=== PATIENT | female | born 1955 | race Two or more races ===

== ENCOUNTER → 2020-12-13 09:56 | Outpatient (REF) | payer OTHER, SELFPAY ==
--- NOTE | 2020-12-13 10:30 | CA_ITS ---
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 Normal LV systolic function with impaired relaxation filling pattern 2. Normal cardiac valvular Doppler 3. Moderate mitral annular calcification and mild fibrocalcific aortic valve changes noted 4. Normal RV systolic pressure 5. No pericardial effusion Findings Left Ventricle Normal left ventricular size, thickness, and systolic function. The visually estimated ejection fraction is between 55-60%. Spectral Doppler is indicative of an impaired relaxation filling pattern. E/E prime ratio is between 8 and 15 consistent with indeterminate filling pressures. Right Ventricle Normal right ventricular cavity size and systolic function. Atria The left atrium is likely dilated. There is no evidence of interatrial shunt. The right atrium is normal in size. Aortic Valve There is mild calcification of the aortic valve. There is mild thickening of the aortic valve. There is no aortic valve stenosis. There is no aortic valve regurgitation. Mitral Valve There is mild anterior and posterior mitral leaflet thickening. There is moderate mitral annular calcification. There is trace mitral valve regurgitation. There is no mitral valve stenosis. Pulmonic Valve The pulmonic valve was not well visualized. There is trace pulmonic valve regurgitation. Tricuspid Valve Normal tricuspid valve structure. There is trace tricuspid valve regurgitation. The right ventricular systolic pressure is normal. The right ventricular systolic pressure is 27 mmHg. Normal right atrial pressure. There is no evidence of pulmonary hypertension. Great Vessels All visible segments of the aorta are normal in size. The pulmonary artery was not well visualized. Moderate plaque is seen in the sino tubular ridge. Venous The inferior vena cava is normal in size and collapses greater than 50% with inspiration. Pericardium/Pleural There is no evidence of pericardial effusion. Prior Study Comparison No significant change compared to prior study dated: 10/27/2019. Measurements 2D Linear Measurements IVSd: 0.95 0.6-0.9/0.6-1.0 cm LVIDd: 4.59 3.9-5.3/4.2-5.9 cm LVIDd Index: 2.43 2.4-3.2/2.2-3.1 cm/m2 LVIDs: 3.02 2.0-3.6 cm LVPWd: 0.98 0.7-1.1 cm Ao Root: 2.90 2.1-3.5 cm LA Diam: 4.00 2.7-3.8/3.0-4.0 cm LAIDs Index: 2.12 1.5-2.3 cm/m2 LV Mass: 187.68 67-162/88-224 g LV Mass Index: 99.30 43-95/49-115 g/m2 LVOT Diam: 2.00 3.0+(-)1.3 cm 2D Systolic Function EF 4C: 53.10 >55% EF 2C: 64.90 >55% EF BiP: 59.10 >55% Mitral Valve MV Pk E: 0.62 MV PK A: 1.11 MV Decel Time: 197.00 E/A: 0.60 E'Lateral: 8.49 E'Medial: 5.87 E/E' Med: 10.50 E/E' Lat: 7.30 PHT: 58.00 MVA PHT: 3.79 Decel Dickenson: 3.14 Aortic Valve AoV Pk Rubio: 1.69 AoV Mn Rubio: 1.14 AoV VTI: 0.39 AoV Pk Grad: 11.00 Aov Mn Grad: 6.00 FAWN Cont.VTI: 1.71 LVOT LVOT Pk Rubio: 1.02 LVOT Mn Rubio: 0.67 LVOT VTI: 0.21 LVOT Pk Grad: 4.00 LVOT Mn Grad: 2.00 LVOT Diam: 2.00 LVOT Area: 3.14 Diastolic Function MV Pk E: 0.62 MV Pk A: 1.11 E/A: 0.60 E'Medial: 5.87 E/E' Med: 10.50 E' Laterial: 8.49 E/E' Lat: 7.30 Tricuspid Valve TR Pk Rubio: 2.46 TR Pk Grad: 24.00 RA Press: 3.00 RVSP: 27.00 Great Vessels Aorta Ao Root-2D: 2.90 2.0-3.7 cm Ao Asc: 3.00 2.1-3.4 cm Ao Arch: 2.70 Updated in Other Vendor System with Status of Final Dewey Lyon MD electronically signed on 12/14/2020 2:37:35 PM with status of Final
== END ==
LOC: HO.CARD 09:56
PROVIDERS: Visit Provider Internal Medicine
DX: R01.1 Cardiac murmur, unspecified (principal); I70.90 Unspecified atherosclerosis
CPT/HCPCS: 93306

== ENCOUNTER → 2020-12-20 14:15 | Outpatient (BNVA) | payer OTHER, SELFPAY | PROVIDERS: PCP Internal Medicine; Visit Provider Internal Medicine | DX: I70.90 Unspecified atherosclerosis (principal); I05.9 Rheumatic mitral valve disease, unspecified; I35.9 Nonrheumatic aortic valve disorder, unspecified | CPT/HCPCS: 93005; 99212 ==

== ENCOUNTER 2021-01-02 08:43 | Outpatient (REF) | payer OTHER, SELFPAY ==
[2021-01-02 16:16] LABS: Free T4 (Free Thyroxine) 1.08 ng/dL (0.71-1.85); Thyroid Stimulating Hormone 0.94 uIU/mL (0.32-4.0)
[2021-01-03 06:07] LABS: Triiodothyronine T3 Total 95 ng/dL (76-181)
== END 2021-01-02 08:44 | disposition home or self-care (01) ==
LOC: HO.LAB 08:43
PROVIDERS: PCP Internal Medicine; Visit Provider Internal Medicine
DX: E05.00 Thyrotoxicosis with diffuse goiter without thyrotoxic crisis or storm (principal); E04.2 Nontoxic multinodular goiter; E55.9 Vitamin D deficiency, unspecified; Z79.899 Other long term (current) drug therapy
CPT/HCPCS: 36415; 84439; 84443; 84480

== ENCOUNTER → 2021-02-13 13:43 | Outpatient (BNVA) | payer OTHER, SELFPAY | PROVIDERS: PCP Internal Medicine; Visit Provider Internal Medicine ==

== ENCOUNTER 2021-03-19 10:00 | Outpatient (REF) | payer OTHER, SELFPAY ==
[2021-03-19 11:21] LABS: Alanine Aminotransferase 13 U/L (0-31); Albumin Level 3.9 g/dL (3.5-5.0); Alkaline Phosphatase 75 U/L (39-117); Aspartate Amino Transferase 16 U/L (5-31); Bilirubin Direct 0.2 mg/dL (0.0-0.5); Bilirubin Total 0.4 mg/dL (0.0-1.0); Cholesterol 112 mg/dL; HDL Cholesterol 51 mg/dL; LDL Cholesterol Calculated 49 mg/dl; Total Protein 6.8 g/dL (6.5-8.0); Triglycerides 64 mg/dL
== END 2021-03-19 10:01 | disposition home or self-care (01) ==
LOC: HO.LAB 10:00
PROVIDERS: Visit Provider Internal Medicine
DX: I70.90 Unspecified atherosclerosis (principal)
CPT/HCPCS: 36415; 80061; 80076

== ENCOUNTER 2021-08-13 09:19 | Outpatient (REF) | payer OTHER, SELFPAY ==
[2021-08-13 11:07] LABS: Free T4 (Free Thyroxine) 0.99 ng/dL (0.71-1.85); Thyroid Stimulating Hormone 0.94 uIU/mL (0.32-4.0); Vitamin D 25-OH Total 13.3 ng/mL (>30)
[2021-08-15 00:46] LABS: Triiodothyronine T3 Total 113 ng/dL (76-181)
[2021-08-19 17:51] LABS: Thyrotropin Receptor Antibody <1.00 IU/L (<=2.00)
[2021-08-21 15:21] LABS: Thyroid Stimulating Immunoglob <89 % baseline (<140)
== END 2021-08-13 09:20 | disposition home or self-care (01) ==
LOC: HO.10HDL 09:19
PROVIDERS: Visit Provider Internal Medicine
DX: E55.9 Vitamin D deficiency, unspecified (principal); E05.00 Thyrotoxicosis with diffuse goiter without thyrotoxic crisis or storm; E04.2 Nontoxic multinodular goiter
CPT/HCPCS: 36415; 82306; 83520; 84439; 84443; 84445; 84480

== ENCOUNTER → 2021-08-14 10:39 | Outpatient (BNVA) | payer OTHER, SELFPAY | PROVIDERS: Visit Provider Internal Medicine ==

== ENCOUNTER → 2021-12-24 13:31 | Outpatient (BNVA) | payer OTHER, SELFPAY | PROVIDERS: Visit Provider Internal Medicine | DX: I70.90 Unspecified atherosclerosis (principal); I05.9 Rheumatic mitral valve disease, unspecified; I35.9 Nonrheumatic aortic valve disorder, unspecified | CPT/HCPCS: 93005; 99212 ==

== ENCOUNTER 2022-02-12 09:15 | Outpatient (REF) | payer OTHER, SELFPAY ==
--- NOTE | ~2022-02-12 | US_ITS ---
EXAMINATION: US THYROID CLINICAL INFORMATION: Nontoxic multinodular goiter. COMPARISON: Thyroid ultrasound 06/19/2020 and 05/04/2019. TECHNIQUE: Linear transducer grayscale and color Doppler examination with attention to the region of the thyroid. FINDINGS: SIZE: Measurements of the thyroid lobes and nodules are given in sagittal, anteroposterior and transverse dimensions respectively. Right Thyroid Lobe: 4.7 x 1.3 x 1.8 cm, volume 5.8 mL. Previously 4.0 x 1.7 x 1.6 cm, volume 5.6 mL. Parenchyma: The gland echotexture is heterogeneous. Thyroid vascularity is normal. Left Thyroid Lobe: 4.4 x 1.1 x 1.4 cm, volume 3.5 mL. Previously 3.7 x 1.8 x 1.7 cm, volume 6.0 mL. Parenchyma: The gland echotexture is heterogeneous. Thyroid vascularity is normal. Isthmus: 0.8 cm in maximum AP dimension. Previously 0.7 cm. Previously visualized nodules appear as heterogeneous tissue with no discrete nodule visualized. NODES: None. US/US thyroid IMPRESSION: Previously visualized nodules are heterogeneous tissue and not visualized. The thyroid gland is diffusely heterogeneous. ACR TI-RADS RECOMMENDATION REFERENCE: Ultrasound-guided fine-needle aspiration, followup ultrasound, no further follow up. * TR1 (0 point) and TR 2 (2 points): No FNA or follow up * TR3 (3 points): FNA if more than or equal to 2.5 cm in maximum dimension, followup ultrasound in 1, 3 and 5 years if 1.5 to 2.4 cm in maximum dimension. * TR4 (4-6 points): FNA if more than or equal to 1.5 cm in maximum dimension, followup ultrasound in 1, 2, 3 and 5 years if 1 to 1.4 cm in maximum dimension. * TR5 (more than or equal to 7 points): FNA if more than or equal to 1 cm in maximum dimension, followup ultrasound every year for 5 years if 0.5 to 0.9 cm in maximum dimension. * TR3, TR4 or TR5 nodules that are below the size threshold for follow up receive no follow up.
== END 2022-02-12 09:16 | disposition home or self-care (01) ==
LOC: HO.US 09:15
PROVIDERS: Visit Provider Internal Medicine
DX: E05.20 Thyrotoxicosis with toxic multinodular goiter without thyrotoxic crisis or storm (principal); E55.9 Vitamin D deficiency, unspecified
CPT/HCPCS: 76536

== ENCOUNTER 2022-03-18 10:32 | Outpatient (REF) | payer OTHER, SELFPAY ==
[2022-03-18 12:51] LABS: Free T4 (Free Thyroxine) 1.04 ng/dL (0.71-1.85); Thyroid Stimulating Hormone 0.79 uIU/mL (0.32-4.0); Vitamin D 25-OH Total 13.8 ng/mL (>30)
[2022-03-19 23:50] LABS: Triiodothyronine T3 Total 118 ng/dL (76-181)
== END 2022-03-18 10:33 | disposition home or self-care (01) ==
LOC: HO.LAB 10:32
PROVIDERS: Visit Provider Internal Medicine
DX: E05.00 Thyrotoxicosis with diffuse goiter without thyrotoxic crisis or storm (principal); E04.2 Nontoxic multinodular goiter; E55.9 Vitamin D deficiency, unspecified
CPT/HCPCS: 36415; 82306; 84439; 84443; 84480

== ENCOUNTER 2022-10-14 11:03 | Outpatient (REF) | payer OTHER, SELFPAY ==
[2022-10-14 13:19] LABS: Free T4 (Free Thyroxine) 1.08 ng/dL (0.71-1.85); Thyroid Stimulating Hormone 1.19 uIU/mL (0.32-4.0)
== END 2022-10-14 11:04 | disposition home or self-care (01) ==
LOC: HO.LAB 11:03
PROVIDERS: Visit Provider Internal Medicine
DX: E55.9 Vitamin D deficiency, unspecified (principal); E04.2 Nontoxic multinodular goiter; E05.00 Thyrotoxicosis with diffuse goiter without thyrotoxic crisis or storm
CPT/HCPCS: 36415; 82306; 84439; 84443

== ENCOUNTER 2022-11-04 12:48 | Outpatient (REF) | payer OTHER, SELFPAY ==
--- NOTE | ~2022-11-04 | XR_ITS ---
EXAMINATION: XR LUMBOSACRAL SPINE WITH OBLIQUES CLINICAL INFORMATION: Spondylosis COMPARISON: None TECHNIQUE: 8 views of the lumbar spine. FINDINGS: 5 nonrib-bearing lumbar type vertebral bodies. Levoconvex curvature of the spine. The lateral radiograph, the sagittal alignment grossly appears maintained. There is a minimal anterolisthesis of L4 on L5 on the flexion view. Vertebral body heights are maintained. No acute fractures seen. In the lumbar spine, disc spaces are relatively maintained. Multilevel facet degeneration, more prominent at L3-4, L4-5, L5-S1. XR/XR lumbar spine 6V w bending IMPRESSION: Levoconvex curvature of the lumbar spine. Lumbar spondylosis with multilevel facet degeneration.
== END 2022-11-04 12:49 | disposition home or self-care (01) ==
LOC: HO.XRAY 12:48
PROVIDERS: Visit Provider Nurse Practitioner Family
DX: M48.061 Spinal stenosis, lumbar region without neurogenic claudication (principal); M47.816 Spondylosis without myelopathy or radiculopathy, lumbar region; M54.16 Radiculopathy, lumbar region
CPT/HCPCS: 72114; 99202

== ENCOUNTER → 2022-11-05 13:12 | Outpatient (BNVA) | payer OTHER, SELFPAY | PROVIDERS: Visit Provider Internal Medicine | DX: E05.00 Thyrotoxicosis with diffuse goiter without thyrotoxic crisis or storm (principal); E04.2 Nontoxic multinodular goiter; E55.9 Vitamin D deficiency, unspecified; Z79.899 Other long term (current) drug therapy | CPT/HCPCS: 99212 ==

== ENCOUNTER → 2023-02-26 12:20 | Outpatient (BNVA) | payer OTHER, SELFPAY | PROVIDERS: Visit Provider Internal Medicine | DX: I70.90 Unspecified atherosclerosis (principal); I05.9 Rheumatic mitral valve disease, unspecified; I35.9 Nonrheumatic aortic valve disorder, unspecified | CPT/HCPCS: 93005; 99212 ==

== ENCOUNTER 2023-05-13 08:43 | Outpatient (AMB) | payer OTHER, SELFPAY ==
--- NOTE | 2023-05-13 08:43 | MHC.OFFVIS ---
Intake Intake Visit Reasons: F/U Grave's Disease Allergies No Known Allergies [No Known Allergies*] Allergy (Verified 05/13/23 10:19) Medication List - Last Reconciled 05/13/23 by Kaela Maria DO brimonidine 0.2% 1 drp ophthalmic (eye) Q12H cholecalciferol (vitamin D3) 50 mcg PO DAILY 30 days dorzolamide-timolol 22.3-6.8 mg/mL 1 drp ophthalmic (eye) Q12H gabapentin 200 mg PO TID PRN latanoprost 0.005% 1 drp ophthalmic (eye) BEDTIME meloxicam 7.5 mg PO DAILY PRN methocarbamol 1,000 mg PO BID oxycodone-acetaminophen 5-325 mg 1 tab PO Q12H PRN rosuvastatin (Crestor) 20 mg PO DAILY HPI HPI Comments History of Present Illness Details 68 YO F with PMHx Grave's disease who is seen in F/U for the same. She was previously followed by Dr. Maravilla. Review of past records reveals that she was diagnosed with Grave's disease in 2010 with suppressed TSH and TRAB antibodies elevated. She had thyroid uptake and scan completed 06/17/2011 which revealed diffusely increased uptake of 64.1% at 24 hours, consistent with Grave's disease. She was started on Methimazole, and this was slowly tapered to 2.5 mg PO daily, and then stopped in 2012. Approximately 1 year later symptoms recurred and she was again diagnosed with hyperthyroidism. She was placed on Methimazole 7.5 mg PO daily and continued this until late 2016. She was then lost to F/U and has remained off Methimazole. She reestablished care with de in 2019. Labs were repeated and confirmed Hyperthyroidism due to Grave's disease with elevated TSI and TSH 0.05 05/02/19. She also had a CBC checked which revealed low ANC, thus decision was made to hold off on thionamine therapy, and refer her to Dr. Huynh to discuss total thyroidectomy. Labs were then repeated 07/18/19 which showed improvement of TSH to 0.7 with FT4 of 0.96. CBC remained with low ANC. She did not have thyroid uptake and scan given that TSH was now normal. TSH has remained normal since that time. She never attended her appointment with Dr. Huynh despite multiple attempts by their office to contact her. She also had thyroid US which revealed a multinodular thyroid, with multiple subcentimeter nodules bilaterally. There were also multiple normal appearing lymph nodes bilaterally. She had her yearly surveillance US 02/12/2022 which revealed no nodules and solely a heterogenous appearing gland. She reports feeling well currently and denies any symptoms of hyper or hypothyroidism. She remains off Methimazole. She denies any family history of Grave's disease or other thyroid disease. Thyroid US: 02/12/2022 Right Thyroid Lobe: 4.7 x 1.3 x 1.8 cm, volume 5.8 mL. Previously 4.0 x 1.7 x 1.6 cm, volume 5.6 mL. Parenchyma: The gland echotexture is heterogeneous. Thyroid vascularity is normal. Left Thyroid Lobe: 4.4 x 1.1 x 1.4 cm, volume 3.5 mL. Previously 3.7 x 1.8 x 1.7 cm, volume 6.0 mL. Parenchyma: The gland echotexture is heterogeneous. Thyroid vascularity is normal. Isthmus: 0.8 cm in maximum AP dimension. Previously 0.7 cm. Previously visualized nodules appear as heterogeneous tissue with no discrete nodule visualized. NODES: None. Labs: Laboratory Tests 10/14/22 11:12 25-OH Vitamin D To sadiq 20.0 TSH 1.19 Free T4 1.08 PFSH Medical History Aortic valve calcification Atherosclerotic vascular disease Graves disease Mitral annular calcification Multinodular thyroid Vitamin D deficiency Surgical History History of tubal ligation Family History Mother Asthma Father No problems noted. Other Diabetes Social History Alcohol intake: never Patient Tobacco Use Status: Never used Tobacco Assessment & Plan Assessment & Plan (1) Graves disease: Code(s): E05.00 - Thyrotoxicosis with diffuse goiter without thyrotoxic crisis or storm Plan: Patient with Grave's disease who is currently in remission, but does have frequent flares of disease. We discussed that if her Grave's does flare again, it will be difficult to manage because thionamine therapy is contraindicated due to her Neutropenia. We discussed that her neutrophils are low. I had referred her to Hematology for this in the past, but she has refused to go to these appointments. I advised her to discuss this with her PCP so that a referral can be made by her PCP to Hematology. We discussed that I feel a surgical thyroidectomy is a good option for her as this will treat her Grave's disease and also her nodules. She is at high risk for thyroid cancer given the Grave's disease, and she does have multiple subcentimeter nodules within the thyroid. I had referred her to Dr. Huynh to discuss this in the past, but she has consistently missed these appointments. She is refusing to see the surgeon at this time. She states that she understands the risk of recurrent thyrotoxicosis and the challenges in treating this due to the low neutrophils, and also understands the risk of thyroid cancer and that without surgery this may grow and spread. She continues to refuse surgery at this time. I will repeat her TFTs now. If normal she will F/U with her PCP for further management. If abnormal I will call her to discuss. All of her questions were answered. She is in agreement with this plan of care. I spent 20 minutes in reviewing the record, seeing the patient and documenting in the medical record, including 5 minutes on the phone with the Patient. (2) Multinodular thyroid: Code(s): E04.2 - Nontoxic multinodular goiter Plan: Her most recent US revealed no evidence of nodules, just a heterogenous appearing gland. Will repeat again now to confirm. Orders: Orders US thyroid Today E04.2 - Nontoxic multinodular goiter, E05.00 - Thyrotoxicosis with diffuse goiter without thyrotoxic crisis or storm Telehealth Telehealth Location of provider rendering services: practice address Location of patient: address on file Patient Identification confirmed using: Name, : Yes Telehealth method: voice only Patient verbally consented to treatment: Yes Patient verbally consented to billing insurance company: Yes Patient informed of any privacy concerns related to visit: Yes Coding Level of Care Code Tele Est Pt Level 3 (81106) Diagnoses Graves disease E05.00 Multinodular thyroid E04.2
== END 2023-05-13 10:34 | disposition home or self-care (01) ==
LOC: HO.ENCR 08:43
PROVIDERS: Visit Provider Internal Medicine
DX: E05.00 Thyrotoxicosis with diffuse goiter without thyrotoxic crisis or storm (principal); E04.2 Nontoxic multinodular goiter
CPT/HCPCS: 99213

== ENCOUNTER → 2023-05-13 08:43 | Outpatient (BNVA) | payer OTHER, SELFPAY | PROVIDERS: Visit Provider Internal Medicine ==

== ENCOUNTER 2023-05-14 12:24 | Outpatient (REF) | payer OTHER, SELFPAY ==
[2023-05-14 14:57] LABS: Free T4 (Free Thyroxine) 1.03 ng/dL (0.71-1.85); Vitamin D 25-OH Total 20.7 ng/mL (>30)
== END 2023-05-14 12:25 | disposition home or self-care (01) ==
LOC: HO.LAB 12:24
PROVIDERS: Visit Provider Internal Medicine
DX: E05.00 Thyrotoxicosis with diffuse goiter without thyrotoxic crisis or storm (principal); E55.9 Vitamin D deficiency, unspecified
CPT/HCPCS: 36415; 82306; 84439; 84443

== ENCOUNTER 2023-06-01 10:11 | Outpatient (REF) | payer OTHER, SELFPAY ==
--- NOTE | ~2023-06-01 | US_ITS ---
EXAMINATION: US THYROID CLINICAL INFORMATION: Nontoxic multinodular goiter. COMPARISON: Ultrasound thyroid 02/12/2022 and 06/19/2020. TECHNIQUE: Linear transducer grayscale and color Doppler examination with attention to the region of the thyroid. FINDINGS: SIZE: Measurements of the thyroid lobes and nodules are given in sagittal, anteroposterior and transverse dimensions respectively. Right Thyroid Lobe: 4.7 x 2.0 x 1.8 cm, volume 9.0 mL. Previously 4.7 x 1.3 x 1.8 cm, volume 5.8 mL. Parenchyma: The gland echotexture is homogeneous. Thyroid vascularity is normal. Left Thyroid Lobe: 4.5 x 1.9 x 1.4 cm, volume 6.2 mL. Previously 4.4 x 1.1 x 1.4 cm, volume 3.5 mL. Parenchyma: The gland echotexture is homogeneous. Thyroid vascularity is normal. Isthmus: 0.5 cm in maximum AP dimension. Previously 0.8 cm. No focal thyroid nodule is seen. NODES: No lymphadenopathy is seen in the tissue surrounding the thyroid gland. There are shotty, nonpathologically enlarged midline and left cervical lymph nodes. US/US thyroid IMPRESSION: There is a mild asymmetric goiter, right lobe greater than left. The examination is otherwise unremarkable. ACR TI-RADS RECOMMENDATION REFERENCE: Ultrasound-guided fine-needle aspiration, follow up ultrasound, no further followup. * TR1 (0 point) and TR2 (2 points): No FNA or followup * TR3 (3 points): FNA if more than or equal to 2.5 cm in maximum dimension, follow up ultrasound in 1, 3 and 5 years if 1.5 to 2.4 cm in maximum dimension. * TR4 (4-6 points): FNA if more than or equal to 1.5 cm in maximum dimension, follow up ultrasound in 1, 2, 3 and 5 years if 1 to 1.4 cm in maximum dimension. * TR5 (more than or equal to 7 points): FNA if more than or equal to 1 cm in maximum dimension, follow up ultrasound every year for 5 years if 0.5 to 0.9 cm in maximum dimension. * TR3, TR4 or TR5 nodules that are below the size threshold for follow up receive no followup.
== END 2023-06-01 10:12 | disposition home or self-care (01) ==
LOC: HO.US 10:11
PROVIDERS: Visit Provider Internal Medicine
DX: E04.2 Nontoxic multinodular goiter (principal); E05.00 Thyrotoxicosis with diffuse goiter without thyrotoxic crisis or storm
CPT/HCPCS: 76536

== ENCOUNTER → 2024-02-18 14:12 | Outpatient (REF) | payer OTHER, SELFPAY ==
--- NOTE | 2024-02-18 14:18 | CA_ITS ---
Transthoracic Echocardiogram Patient (Last, First, Middle): Sendy Zhou, Gender: Female Date of : 1955 Age: 68 Procedure Date: 02/18/2024 Procedure Type: Transthoracic Echocardiogram Location: OP Height: 157.48 cm Weight: 83.92 kg BSA: 1.85 m2 Heart Rate: 81 bpm BP: 132 / 70 mmHg Professional Caster: SB Referring MD: Black Levin MD Symptoms: I25.10 - Atherosclerotic heart disease of [place] coronary artery without... Study Quality: Fair but adequate ECG Rhythm: Sinus Conclusions: - The left ventricular systolic function is normal. The calculated ejection fraction is 65% by biplane method. - No obvious valvular pathology seen on this study. Findings Procedure Information The quality of the study was technically difficult. The study quality is limited by patients body habitus. Left Ventricle Normal left ventricular cavity size. The left ventricular systolic function is normal. The calculated ejection fraction is 65% by biplane method. There is no evidence of regional wall motion abnormalities. Evidence suggests grade I (mild) diastolic dysfunction. There is mild septal asymmetric hypertrophy. Right Ventricle Normal right ventricular cavity size and systolic function. Atria Both atria are normal in size. Aortic Valve There is a normal trileaflet aortic valve. There is mild calcification of the aortic valve. There is no aortic valve stenosis. There is no aortic valve regurgitation. Mitral Valve The mitral valve appears normal. There is trace mitral valve regurgitation. There is no mitral valve stenosis. Pulmonic Valve The pulmonic valve is likely normal. Tricuspid Valve There is trace tricuspid valve regurgitation. There is no evidence of pulmonary hypertension. Great Vessels The asc aorta is normal in size. Small plaque is seen in the sino tubular ridge. Venous The inferior vena cava is normal in size and collapses greater than 50% with inspiration. Pericardium/Pleural There is no evidence of pericardial effusion. Prior Study Comparison No significant change compared to prior study dated: 12/13/2020. Recommendations, Care & Conclusions No obvious valvular pathology seen on this study. Measurements 2D Linear Measurements IVSd: 1.19 0.6-0.9/0.6-1.0 cm LVIDd: 4.61 3.9-5.3/4.2-5.9 cm LVIDd Index: 2.49 2.4-3.2/2.2-3.1 cm/m2 LVIDs: 3.13 2.0-3.6 cm LVPWd: 0.69 0.7-1.1 cm LA Diam: 4.30 2.7-3.8/3.0-4.0 cm LAIDs Index: 2.32 1.5-2.3 cm/m2 LV Mass: 182.01 67-162/88-224 g LV Mass Index: 98.38 43-95/49-115 g/m2 LVOT Diam: 1.90 3.0+(-)1.3 cm 2D Systolic Function EF 4C: 72.40 >55% EF 2C: 56.00 >55% EF BiP: 65.30 >55% Mitral Valve MV VTI: 0.23 MV Pk Rubio: 0.93 MV Mn Rubio: 0.65 MV Pk Grad: 3.00 MV Mn Grad: 2.00 MV Pk E: 0.77 MV PK A: 1.04 MV Decel Time: 190.00 E/A: 0.70 E'Lateral: 6.64 E'Medial: 7.29 E/E' Med: 10.60 E/E' Lat: 11.60 PHT: 56.00 MVA PHT: 3.93 MVA Continuity: 3.01 Decel [place]: 4.06 Aortic Valve AoV Pk Rubio: 1.79 AoV Pk Grad: 13.00 FAWN: 1.95 LVOT LVOT Pk Rubio: 1.13 LVOT Mn Rubio: 0.82 LVOT VTI: 0.24 LVOT Pk Grad: 5.00 LVOT Mn Grad: 3.00 LVOT Diam: 1.90 LVOT Area: 2.84 Diastolic Function MV Pk E: 0.77 MV Pk A: 1.04 E/A: 0.70 E'Medial: 7.29 E/E' Med: 10.60 E' Laterial: 6.64 E/E' Lat: 11.60 Right Ventricle TAPSE (mm): 19.10 TVS' Rubio: 15.50 Tricuspid Valve TR Pk Rubio: 2.48 TR Pk Grad: 25.00 RA Press: 3.00 RVSP: 28.00 Great Vessels Aorta Sinus of Valsalva: 3.00 2.0-3.5 cm Ao Asc: 2.90 2.1-3.4 cm Pulmonary Veins Pulm Vein S/D 2.30 Pulmonary Valve PV Pk Rubio: 1.00 Peak PV Grad: 4.00 Updated in Other Vendor System with Status of Final Black Levin MD electronically signed on 02/20/2024 11:42:26 AM with status of Final
== END ==
LOC: HO.CARD 14:12
PROVIDERS: PCP Internal Medicine; Visit Provider Internal Medicine
DX: I25.10 Atherosclerotic heart disease of native coronary artery without angina pectoris (principal); I05.9 Rheumatic mitral valve disease, unspecified
CPT/HCPCS: 93306

== ENCOUNTER → 2024-02-18 14:18 | Outpatient (BNV) | payer OTHER, SELFPAY | PROVIDERS: PCP Internal Medicine; Visit Provider Internal Medicine | DX: I25.10 Atherosclerotic heart disease of native coronary artery without angina pectoris (principal) | CPT/HCPCS: 93306 ==

== ENCOUNTER 2024-03-01 12:34 | Outpatient (AMB) | payer OTHER, SELFPAY ==
[2024-03-01 13:05] VITALS: BP 120/64; PULSE 77; BMI 34.5
--- NOTE | 2024-03-01 13:05 | A.OFFVIS_ITS ---
Vital Signs 03/01/24 13:05 Height 5 ft 2 in Weight 188 lb 11.451 oz BMI 34.5 BP 120/64 Blood Pressure Location Lt brachial Position Sitting Pulse 77 Intake Visit Reasons: 1 yr w/ echo Home Care Chaplain Required: Yes Home Care Chaplain Name: ashely/bud Accompanied by: Self / Same As Patient Allergies No Known Allergies [No Known Allergies*] Allergy (Verified 05/13/23 10:19) Medication List - Last Reconciled 03/01/24 by Black Levin MD brimonidine 0.2% 1 drp ophthalmic (eye) Q12H cholecalciferol (vitamin D3) 50 mcg PO DAILY 30 days dorzolamide-timolol 22.3-6.8 mg/mL 1 drp ophthalmic (eye) Q12H latanoprost 0.005% 1 drp ophthalmic (eye) BEDTIME meloxicam 7.5 mg PO DAILY PRN oxycodone-acetaminophen 5-325 mg 1 tab PO Q12H PRN HPI Comments Details: Sendy returns for follow-up. She was seen in the past for concerns of cardiac murmur. In the past, echocardiogram had shown aortic valve sclerosis as well as mitral annular calcification. Overall, she is generally doing good. No clear symptoms. [facility] Medical History Aortic valve calcification Atherosclerotic vascular disease Graves disease Mitral annular calcification Multinodular thyroid Vitamin D deficiency Surgical History History of tubal ligation Family History Mother Asthma Father No problems noted. Other Diabetes Social History Alcohol intake: never Patient Tobacco Use Status: Never used Tobacco Review of Systems Const Denies chills, Denies fatigue, Denies fever(s), Denies frequent falls, Denies weakness, Denies weight gain and Denies weight loss ENT Denies dizziness Card Denies chest pain, Denies leg edema, Denies lightheadedness, Denies palpitations, Denies dyspnea and Denies dyspnea on exertion Resp Denies cough, Denies dyspnea and Denies dyspnea on exertion GI Denies hematochezia Musc Denies abnormal gait, Denies muscle weakness, Denies numbness, Denies radiating pain into limb and Denies tingling Neuro Denies abnormal gait, Denies dizziness, Denies frequent falls, Denies numbness, Denies tingling and Denies weakness Endo Denies fatigue and Denies palpitations Physical Exam Vital Signs: Last Vital Signs Pulse 77 03/01/24 13:05 BP 120/64 03/01/24 13:05 BMI result Body Mass Index 34.5 Const General: comfortable and no acute distress Orientation/consciousness: patient oriented x3 HEENT Other: Unremarkable Head: Yes normal to inspection Neck Neck: Yes normal visual inspection Chest Chest palpation & inspection: normal inspection of the chest Resp Auscultation: clear to auscultation bilaterally Cardio Palpation: normal PMI Heart sounds: S1 normal heart sound present, S2 normal heart sound present, no gallops, Murmur heart sound present systolic III/ and at the right sternal border and no rubs GI Palpation (GI): Soft to palpation Back/Spine/Pelvis Other: unremarkable Skin General skin exam: no rashes or lesions noted Neuro General: patient oriented x3 Extrem General: Yes normal to inspection Psych Mental Status: mental status grossly normal Office Procedures EKG Details: EKG with sinus rhythm at 77/Min; premature supraventricular complexes; voltage criteria for LVH and nonspecific changes in the inferior leads. [id number], Complete Assessment & Plan Assessment & Plan (1) Atherosclerotic vascular disease: Code(s): I70.90 - Unspecified atherosclerosis Category: Medical (2) Mitral annular calcification: Code(s): I05.9 - Rheumatic mitral valve disease, unspecified Category: Medical (3) Aortic valve calcification: Code(s): I35.9 - Nonrheumatic aortic valve disorder, unspecified Category: Medical Plan Echocardiogram-12/2020-LVEF 55-60%; mild diastolic dysfunction with indeterminate filling pressures; possible left atrial dilatation; mild aortic valve calcification; moderate mitral annular calcification; moderate plaque in the sinotubular ridge. Repeat echocardiogram 02/2024-LVEF 65%; described to have mild aortic valve calcification; small plaque in the sinotubular ridge. Overall, suggestion of vascular disease but no angina and no other symptoms from cardiac. She was on statins but has not been taking recently. May resume that. Last available LDL cholesterol 49 mg/dL. Triglycerides 64 mg/dL. Will need to contact PCP for more recent labs. She states she goes to [facility] but cannot recall the name of PCP. Medications: Refilled rosuvastatin (Crestor) 20 mg PO DAILY 90 tabs 4RF I70.90 - Unspecified atherosclerosis Coding Level of Care Code Est Pt Level 3 (25294) Diagnoses Atherosclerotic vascular disease I70.90 Mitral annular calcification I05.9 Aortic valve calcification I35.9 CPT Codes EKG - CPT: 53611-[id number], Complete ([id number])
== END 2024-03-01 13:27 | disposition home or self-care (01) ==
PROVIDERS: Visit Provider Internal Medicine
DX: I70.90 Unspecified atherosclerosis (principal); I05.9 Rheumatic mitral valve disease, unspecified; I35.9 Nonrheumatic aortic valve disorder, unspecified
CPT/HCPCS: 93010; 99213

== ENCOUNTER → 2024-03-01 12:34 | Outpatient (BNVA) | payer OTHER, SELFPAY | PROVIDERS: PCP Internal Medicine; Visit Provider Internal Medicine | DX: I70.90 Unspecified atherosclerosis (principal); I05.9 Rheumatic mitral valve disease, unspecified; I35.9 Nonrheumatic aortic valve disorder, unspecified | CPT/HCPCS: 93005 ==

== ENCOUNTER 2025-03-02 12:04 | Outpatient (AMB) | payer OTHER, SELFPAY ==
--- NOTE | 2025-03-02 12:31 | A.OFFVIS_ITS ---
Vital Signs 03/02/25 12:35 Height 5 ft 2 in Weight 197 lb 8.547 oz BMI 36.1 BP 130/70 Blood Pressure Location Lt brachial Position Sitting Pulse 72 Pulse Source Monitor Intake Visit Reasons: 1 yr f/up Insert Operator Required: No Accompanied by: Significant Other Allergies No Known Allergies [No Known Allergies*] Allergy (Verified 05/13/23 10:19) Medication List - Last Reconciled 03/02/25 by Black Levin MD brimonidine 0.2% 1 drp ophthalmic (eye) Q12H cholecalciferol (vitamin D3) 50 mcg PO DAILY 30 days dorzolamide-timolol 22.3-6.8 mg/mL 1 drp ophthalmic (eye) Q12H latanoprost 0.005% 1 drp ophthalmic (eye) BEDTIME meloxicam 7.5 mg PO DAILY PRN rosuvastatin (Crestor) 20 mg PO DAILY HPI Comments Details: Sendy returns for follow-up. She was seen in the past for concerns of cardiac murmur. Echocardiogram had shown aortic valve sclerosis as well as mitral annular calcification. No specific symptoms. She states she feels good. [facility] Medical History Aortic valve calcification Atherosclerotic vascular disease Graves disease Mitral annular calcification Multinodular thyroid Vitamin D deficiency Surgical History History of tubal ligation Family History Mother Asthma Father No problems noted. Other Diabetes Social History Alcohol intake: never Patient Tobacco Use Status: Never used Tobacco Review of Systems Const Denies chills, Denies fatigue, Denies fever(s), Denies frequent falls, Denies weakness, Denies weight gain and Denies weight loss ENT Denies dizziness Card Denies chest pain, Denies leg edema, Denies lightheadedness, Denies palpitations, Denies dyspnea and Denies dyspnea on exertion Resp Denies cough, Denies dyspnea and Denies dyspnea on exertion GI Denies hematochezia Musc Denies abnormal gait, Denies muscle weakness, Denies numbness, Denies radiating pain into limb and Denies tingling Neuro Denies abnormal gait, Denies dizziness, Denies frequent falls, Denies numbness, Denies tingling and Denies weakness Endo Denies fatigue and Denies palpitations Physical Exam Vital Signs: Last Vital Signs Pulse 72 03/02/25 12:35 BP 130/70 03/02/25 12:35 BMI result Body Mass Index 36.1 Const General: comfortable and no acute distress Orientation/consciousness: patient oriented x3 HEENT Other: Unremarkable Head: Yes normal to inspection Neck Neck: Yes normal visual inspection Chest Chest palpation & inspection: normal inspection of the chest Resp Auscultation: clear to auscultation bilaterally Cardio Palpation: normal PMI Heart sounds: S1 normal heart sound present, S2 normal heart sound present, no gallops, Murmur heart sound present systolic II/ and at the right sternal border and no rubs GI Palpation (GI): Soft to palpation Back/Spine/Pelvis Other: unremarkable Skin General skin exam: no rashes or lesions noted Neuro General: patient oriented x3 Extrem General: Yes normal to inspection Psych Mental Status: mental status grossly normal Office Procedures EKG Details: EKG with sinus rhythm at 72/Min; nonspecific ST-T changes in the inferior leads as well as anterolateral leads. Unchanged from prior. [id number], Complete Assessment & Plan Assessment & Plan (1) Atherosclerotic vascular disease: Code(s): I70.90 - Unspecified atherosclerosis Category: Medical (2) Mitral annular calcification: Code(s): I05.9 - Rheumatic mitral valve disease, unspecified Category: Medical (3) Aortic valve calcification: Code(s): I35.9 - Nonrheumatic aortic valve disorder, unspecified Category: Medical Plan Echocardiogram-12/2020-LVEF 55-60%; mild diastolic dysfunction with indeterminate filling pressures; possible left atrial dilatation; mild aortic valve calcification; moderate mitral annular calcification; moderate plaque in the sinotubular ridge. Repeat echocardiogram 02/2024-LVEF 65%; described to have mild aortic valve calcification; small plaque in the sinotubular ridge. Overall, suggestion of vascular disease/valvular calcification but no angina and no other symptoms from cardiac. Hence continue risk factor modification. Continue statins. LDL from 11/2023-97 mg per dL. Triglycerides 84 mg/dL. We will contact PCP for more up-to-date labs. Follow up in 2 years with an echocardiogram. In the interim, call with concerns. Discussion Notes During the visit, the patient and I discussed her overall wellness status. There were no ongoing symptoms that required immediate attention or further diagnostic procedures. The patient was advised that, in the absence of any significant cardiovascular symptoms, a routine follow-up in two years would be appropriate. This discussion included the confirmation of no current need for treatment alteration, recognizing that a stable state is present. The importance of promptly addressing any new symptoms should they develop was emphasized, ensuring an approach of surveillance and anticipation. Patient was informed and verbally consented to the use of an ambient scribe for clinic note documentation during this visit. Patient Instructions: - Feel free to continue with current routine activities. - Keep an eye out for new symptoms like chest pain, pressure, or trouble breathing. - Plan to come back for a follow-up in two years unless you start feeling unwell. - Seek medical help sooner if symptoms like consistent tiredness or unusual pain start. Coding Level of Care Code Est Pt Level 3 (67652) Diagnoses Atherosclerotic vascular disease I70.90 Mitral annular calcification I05.9 Aortic valve calcification I35.9 CPT Codes EKG - CPT: 48412-[id number], Complete ([id number])
[2025-03-02 12:35] VITALS: BP 130/70; PULSE 72; BMI 36.1
== END 2025-03-02 12:58 | disposition home or self-care (01) ==
PROVIDERS: PCP Internal Medicine; Visit Provider Internal Medicine
DX: I70.90 Unspecified atherosclerosis (principal); I05.9 Rheumatic mitral valve disease, unspecified; I35.9 Nonrheumatic aortic valve disorder, unspecified
CPT/HCPCS: 93010; 99213

== ENCOUNTER → 2025-03-02 12:04 | Outpatient (BNVA) | payer OTHER, SELFPAY | PROVIDERS: PCP Internal Medicine; Visit Provider Internal Medicine | DX: I70.90 Unspecified atherosclerosis (principal); I05.9 Rheumatic mitral valve disease, unspecified; I35.9 Nonrheumatic aortic valve disorder, unspecified | CPT/HCPCS: 93005 ==